=== PATIENT | female | born 1995 | race Caucasian/White ===

== ENCOUNTER 2018-12-21 07:14 | Emergency (ER) | payer OTHER ==
[~2018-12-21] VITALS: Ht 165 cm; Wt 88.6 kg
[~2018-12-21 07:14] MED LIST: AMOX500C2 PO; AZIT500T2 PO; DIAMOX PO; GUAI100L2 PO; NF-ESOM40C PO; PHEN-571 PO; POLY17PO23 PO; PRD10T PO; PRM25T PO; PS30T PO; TRAM50TA2 PO; ZLP5T PO
[2018-12-21] MEDS ORDERED: ACETAMINOPHEN 500 MG TAB (TYLENOL) PO STA (07:35)
[2018-12-21] MEDS ORDERED: LACTATED RINGERS 1,000 ML IV ONE ×2 (07:35→08:34)
[2018-12-21] MEDS ORDERED: BIRTH CONTROL (07:43)
[2018-12-21] MEDS ORDERED: KETOROLAC 30 MG/ML VIAL IVP STA (07:47)
--- NOTE | 2018-12-21 07:56 | ED General ---
General Chief Complaint: Cough/Cold/Flu Symptoms Stated Complaint: FEVER,BODY ACHES, CHILLS Nursing Triage Note: PT STATES FEVER, SORETHROAT,NASAL CONGESTION STARTED LAST NITE. 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 She states the symptoms began while at home last night. Nothing seems to alleviate the symptoms and laying flat in bed causes an increase in neck pain. Patient has a history of meningitis in 2009. Patient denies any other associated symptoms, but does agree that she is experiencing the same symptoms as she did from her previous episode of meningitis. Location Injury Occurred: Symptoms began at home Timing/Duration: 12 Hours Severity: Moderate Associated Systoms: Fever/Chills, Headaches, Nausea/Vomiting, Weakness ([employer] CHILDRESS STUDENT) Timing/Duration: 12 Hours Associated Systoms: No Chest Pain, No Cough, No Shortness of Air (KEL CALLEJAS MD) Allergies and Home Medications Allergies Coded Allergies: No Known Drug Allergies (Unverified , 11/28/09) Patient Home Medication List Home Medication List Reviewed: Yes (KEL CALLEJAS MD) Review of Systems Review of Systems Constitutional: see HPI EENTM: nose congestion Respiratory: no symptoms reported Cardiovascular: no symptoms reported Gastrointestinal: no symptoms reported Genitourinary: no symptoms reported Musculoskeletal: back pain, neck pain Skin: no symptoms reported Psychiatric/Neurological: No Symptoms Reported Hematologic/Lymphatic: No Symptoms Reported Immunological/Allergic: no symptoms reported ([employer] CHILDRESS STUDENT) Constitutional: see HPI EENTM: throat pain Respiratory: No cough, No short of breath Musculoskeletal: muscle pain (KEL CALLEJAS MD) All Other Systems Reviewed Negative Unless Noted: Yes (KEL CALLEJAS MD) Past Ngbtpqa-Syuovc-Ikkqrr Hx Past Med/Social Hx: Reviewed Nursing Past Med/Soc Hx (KEL CALLEJAS MD) Patient Social History Alcohol Use: Occasionally Uses Recreational Drug Use: No Smoking Status: Never a Smoker Recent Foreign Travel: No Contact w/Someone Who Travel: No Recent Infectious Disease Expo: No Recent Hopitalizations: No Physical Abuse: No Sexual Abuse: No ([employer] CHILDRESS STUDENT) Seasonal Allergies Seasonal Allergies: Yes (ELBA CHILDRESS) Past Medical History Surgeries: Yes (TUBES IN EARS) Ear Surgery Respiratory: No Cardiac: No Neurological: Yes Meningitis : No Last Menstrual Period: Dec 11, 2018 Reproductive Disorders: No Gastrointestinal: No Musculoskeletal: No Endocrine: No Psychosocial: No Blood Disorders: No (ELBA CHILDRESS) Family Medical History Reviewed Nursing Family Hx (KEL CALLEJAS MD) Physical Exam-Suspected Sepsis Physical Exam Vital Signs Vital Signs - First Documented 12/21/18 07:20 Temp 39.3 Pulse 145 Resp 20 B/P (MAP) 121/68 (85) Pulse Ox 95 O2 Delivery Room Air (KEL CALLEJAS MD) Vital Signs Capillary Refill : Less Than 3 Seconds (ELBA CHILDRESS) Blood Pressure Mean: 85 Height, Weight, BMI Height: '" Weight: lbs. oz. kg; 32.00 BMI Method:Stated General Appearance: Other (Patient appears lethargic) Eyes: Bilateral Eye Normal Inspection, Bilateral Eye PERRL HEENT: PERRL/EOMI, TMs Normal Neck: Tender Midline Respiratory: Chest Non Tender, Lungs Clear, Normal Breath Sounds, No Accessory Muscle Use, No Respiratory Distress Cardiovascular: No Edema, No Gallop, No JVD, Normal Peripheral Pulses, Systolic Murmur, Tachycardia Gastrointestinal: Normal Bowel Sounds, No Organomegaly, No Pulsatile Mass, Non Tender, Soft Back: Normal Inspection, No CVA Tenderness, No Vertebral Tenderness Extremity: Normal Inspection Neurologic/Psychiatric: Alert, Oriented x3, No Motor/Sensory Deficits, Normal Mood/Affect, 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 Norm as Tested ([employer] CHILDRESS STUDENT) General Appearance: WD/WN, Mild Distress HEENT: TMs Normal, Pharyngeal Erythema, Other (mild bilateral nasal congestion with clear rhinorrhea and mild erythema) Neck: Full Range of Motion, Supple Respiratory: Lungs Clear, Normal Breath Sounds Cardiovascular: Systolic Murmur, Tachycardia Gastrointestinal: Non Tender, Soft Back: Normal Inspection, No CVA Tenderness, No Vertebral Tenderness Extremity: Normal Capillary Refill, Normal Range of Motion, Non Tender Neurologic/Psychiatric: Alert, Oriented x3 Skin: normal color, warm/dry (KEL CALLEJAS MD) Focused Exam Lactate Level 12/21/18 07:30: Lactic Acid Level 0.75 (KEL CALLEJAS MD) Lactic Acid Level (KEL CALLEJAS MD) Progress/Results/Core Measures Suspected Sepsis Recent Fever Within 48 Hours: No Infection Criteria Present: None New/Unexplained Altered Menta: No Sepsis Screen: No Definite Risk SIRS Temperature: Pulse: 145 Respiratory Rate: 20 Blood Pressure 121 /68 Mean: 85 ([employer]BA CHILDRESS STUDENT) Results/Orders Lab Results Laboratory Tests Test 12/21/18 07:30 12/21/18 08:33 12/21/18 09:10 12/21/18 11:19 Range/Units White Blood Count 12.8 H 4.3-11.0 10^3/uL Red Blood Count 4.78 4.35-5.85 10^6/uL Hemoglobin 11.8 11.5-16.0 G/DL Hematocrit 36 35-52 % Mean Corpuscular Volume 76 L 80-99 FL Mean Corpuscular Hemoglobin 25 25-34 PG Mean Corpuscular Hemoglobin Concent 32 32-36 G/DL Red Cell Distribution Width 16.7 H 10.0-14.5 % Platelet Count 259 130-400 10^3/uL Mean Platelet Volume 10.0 7.4-10.4 FL Neutrophils (%) (Auto) 74 42-75 % Lymphocytes (%) (Auto) 21 12-44 % Monocytes (%) (Auto) 4 0-12 % Eosinophils (%) (Auto) 0 0-10 % Basophils (%) (Auto) 0 0-10 % Neutrophils # (Auto) 9.5 H 1.8-7.8 X 10^3 Lymphocytes # (Auto) 2.7 1.0-4.0 X 10^3 Monocytes # (Auto) 0.5 0.0-1.0 X 10^3 Eosinophils # (Auto) 0.0 0.0-0.3 10^3/uL Basophils # (Auto) 0.0 0.0-0.1 10^3/uL Prothrombin Time 15.1 H 12.2-14.7 SEC INR Comment 1.1 0.8-1.4 Activated Partial Thromboplast Time 29 24-35 SEC Sodium Level 133 L 135-145 MMOL/L Potassium Level 3.6 3.6-5.0 MMOL/L Chloride Level 101 98-107 MMOL/L Carbon Dioxide Level 22 21-32 MMOL/L Anion Gap 10 5-14 MMOL/L Blood Urea Nitrogen 8 7-18 MG/DL Creatinine 0.82 0.60-1.30 MG/DL Estimat Glomerular Filtration Rate > 60 BUN/Creatinine Ratio 10 Glucose Level 112 H 70-105 MG/DL Lactic Acid Level 0.75 0.50-2.00 MMOL/L Calcium Level 9.2 8.5-10.1 MG/DL Corrected Calcium 8.9 8.5-10.1 MG/DL Total Bilirubin 0.6 0.1-1.0 MG/DL Aspartate Amino Transf (AST/SGOT) 21 5-34 U/L Alanine Aminotransferase (ALT/SGPT) 22 0-55 U/L Alkaline Phosphatase 81 40-136 U/L C-Reactive Protein High Sensitivity 4.25 H 0.00-0.50 MG/DL Total Protein 7.5 6.4-8.2 GM/DL Albumin 4.4 3.2-4.5 GM/DL Serum Test, Qualitative NEGATIVE NEGATIVE Group A Streptococcus Screen NEGATIVE NEGATIVE Urine Color YELLOW Urine Clarity CLEAR Urine pH 6.5 5-9 Urine Specific [place] 1.010 L 1.016-1.022 Urine Protein 2+ H NEGATIVE Urine Glucose (UA) NEGATIVE NEGATIVE Urine Ketones 3+ H NEGATIVE Urine Nitrite NEGATIVE NEGATIVE Urine Bilirubin NEGATIVE NEGATIVE Urine Urobilinogen NORMAL NORMAL MG/DL Urine Leukocyte Esterase 1+ H NEGATIVE Urine RBC (Auto) 1+ H NEGATIVE Urine RBC RARE /HPF Urine WBC 0-2 /HPF Urine Squamous Epithelial Cells 2-5 /HPF Urine Crystals NONE /LPF Urine Bacteria TRACE /HPF Urine Casts NONE /LPF Urine Mucus NEGATIVE /LPF Urine Culture Indicated NO CSF Tube Number 4 CSF Appearance CLEAR CSF Color COLORLESS CSF WBC 3 0-5 CELLS CSF RBC 38 H 0-0 CELLS CSF Lymphocytes % CSF Mononuclear WBCs % CSF Polynuclear WBCs % CSF Glucose 67 50-80 MG/DL CSF Total Protein 30 15-40 MG/DL (KEL CALLEJAS MD) Micro Results Microbiology 12/21/18 Gram Stain - Final, Resulted 12/21/18 CSF Culture, Resulted Pending 12/21/18 Influenza Types A,B Antigen (ZOIE) - Final, Complete (KEL CALLEJAS MD) My Orders Orders - KEL CALLEJAS MD Lactated Ringers (Lr 1000 Ml Iv Solution (12/21/18 07:35) Influenza A And B Antigens (12/21/18 07:35) Acetaminophen Tablet (Tylenol Tablet) (12/21/18 07:35) Cbc With Automated Diff (12/21/18 07:35) Comprehensive Metabolic Panel (12/21/18 07:35) Blood Culture (12/21/18 07:35) Sputum Culture (12/21/18 07:35) Urinalysis (12/21/18 07:35) Urine Culture (12/21/18 07:35) Protime With Inr (12/21/18 07:35) Partial Thromboplastin Time (12/21/18 07:35) Chest 1 View, Ap/Pa Only (12/21/18 07:35) Ed Iv/Invasive Line Start (12/21/18 07:35) Vital Signs Adult Sepsis Patie Q15M (12/21/18 07:35) O2 (12/21/18 07:35) Remove Rings In Anticipation O (12/21/18 07:35) Lactic Acid Analyzer (12/21/18 07:35) Ketorolac Injection (Toradol Injection) (12/21/18 07:47) Hcg,Qualitative Serum (12/21/18 07:49) Hs C Reactive Protein (12/21/18 08:10) Rapid Strep A Screen (12/21/18 08:31) Ed Iv/Invasive Line Start (12/21/18 08:34) Lactated Ringers (Lr 1000 Ml Iv Solution (12/21/18 08:34) Ct Head Wo (12/21/18 09:10) Csf Cell Count (12/21/18 10:21) Csf Glucose (12/21/18 10:21) Csf Total Protein (12/21/18 10:21) Csf Culture (12/21/18 10:21) Virus Culture (12/21/18 10:21) Lidocaine 1% Inj 20 Ml (Xylocaine 1% Inj (12/21/18 10:52) (KEL CALLEJAS MD) Medications Given in ED Current Medications Medications Dose Ordered Sig/Patric Route Start Time Stop Time Status Last Admin Dose Admin Lactated Ringer's 1,000 ml @ 0 mls/hr Q0M ONCE IV 12/21/18 07:35 12/21/18 07:47 DC 12/21/18 07:51 1,000 MLS/HR Lactated Ringer's 1,000 ml @ 0 mls/hr Q0M ONCE IV 12/21/18 08:34 12/21/18 08:35 DC 12/21/18 08:43 1,000 MLS/HR Lidocaine HCl 20 ml STK-MED ONCE .ROUTE 12/21/18 10:52 12/21/18 10:54 DC 12/21/18 11:13 20 ML (KEL CALLEJAS MD) Vital Signs/I&O 12/21/18 12/21/18 07:20 07:20 Temp 39.3 Pulse 145 Resp 20 B/P (MAP) 121/68 (85) Pulse Ox 95 O2 Delivery Room Air (KEL CALLEJAS MD) Vital Signs/I&O Capillary Refill : Less Than 3 Seconds (ELBA CHILDRESS PA STUDENT) Blood Pressure Mean: 85 Progress Note : Progress Note I have seen and evaluated the patient and agree with above except as indicated. I have directed the plan of care. Patient is here with onset of fever and bodyaches that started last night. Fever noted in the range of 39.3C here and was reportedly higher home. She did take Tylenol last night but has not had anything today. She does arrive tachycardic and febrile. Denies nausea or vomiting. Does admit to sore throat. No significant cough. Vital signs reviewed. Physical exam as above. Did complain of neck pain but did have full range of motion but reported a little pain on far turns when evaluating TMs. We will initiate sepsis workup including influenza and rapid strep. LR 1 L bolus ordered. This is repeated 1. Acetaminophen 1 g by mouth and Toradol 30 mg IV ordered. Monitor patient. 1020: Patient is overall doing much better. She does have significant history of previous meningitis with uncal herniation requiring intubation after cardiopulmonary arrest. This does appear to be viral related to meningitis at that time. Given her history and presenting symptoms, CT head was ordered and is negative. We will proceed with lumbar puncture. Our anesthesia partners were consulted and they will do a lumbar puncture with opening pre ssure. We will get typical CSF studies as well as viral culture. This was discussed with patient and family who agree with plan. 1315: Results reviewed from lumbar puncture. Patient did have opening pressure of 24 but clear fluid. Gram stain shows rare WBC and no bacteria. Patient did have traumatic tap due to difficulty and there were a few red cells on the cell count with 3 WBCs. Protein and glucose were normal. No indication of bacterial meningitis. Overall she is markedly improved with heart rate of 73 and states that she feels better and is currently afebrile. Given the current situation I believe bacterial meningitis is ruled out and significant other meningitis unlikely although can be followed and should be followed outpatient. I did discuss the case with Dr. Jimenez and she agrees. We both agree on no antibiotics at this point. I would like to follow-up and Dr. Yoo is asked that we call for appointment which I did. She has appointment with the nurse practitioner Carolyn. This is Monday at 8 AM on 12/11 5. All of this was discussed with the patient and family who agree. Discharged home with return precautions. Patient and family verbalize understanding instructions and agreement with plan. I will send a copy of the chart to Dr. Jimenez (KEL CALLEJAS MD) Diagnostic Imaging Diagonstic Imaging: Xray Plain Films/CT/US/NM/MRI: chest Comments NAME: WILLIAM VASQUEZ [facility] REC#: [id number] PT STATUS: REG ER : 1995 PHYSICIAN: KEL CALLEJAS MD ADMIT DATE: 12/21/18/ER Draft Date of Exam:12/21/18 CHEST 1 VIEW, AP/PA ONLY INDICATION: Fever. Time of exam 8:05 AM Correlation is made with prior chest from 11/29/2009. The heart size is normal. The pulmonary vascularity is unremarkable. The lungs are clear. No infiltrate, effusion or pneumothorax is detected. Impression: No acute cardiopulmonary process is detected. Dictated on workstation # [id number] Dict: 12/21/18823 Trans: 12/21/18826 [facility] [id number] Interpreted by: ANAY JIMENEZ MD Electronically signed by: Diagonstic Imaging: CT Plain Films/CT/US/NM/MRI: head Comments NAME: WILLIAM VASQUEZ REC#: [id number] PT STATUS: REG ER : 1995 PHYSICIAN: KEL CALLEJAS MD ADMIT DATE: 12/21/18/ER Signed Date of Exam: 12/21/18 CT HEAD WO PROCEDURE: CT head without contrast. TECHNIQUE: Multiple contiguous axial images were obtained through the brain without the use of intravenous contrast. Auto Exposure Controls were utilized during the CT exam to meet ALARA standards for radiation dose reduction. INDICATION: Fever, pain, headache. There were no findings of focal nor generalized cerebral edema. There was no evidence for an elevation of the intracranial pressures. The basilar cisterns are patent. The ventricular system is nondilated and nondisplaced. When compared to a prior performed in 2009, there has been no appreciable interval change. The mastoid air cells are clear. The middle ear cavities clear. The partially visualized orbits and paranasal sinuses unremarkable. IMPRESSION: No hemorrhage, edema, elevated pressures or acute appearing abnormality. Clear sinuses. Dictated by: Dictated on workstation # [id number] Dict: 12/21/18 0958 Trans: 12/21/18 1147 Interpreted by: MARGARITA RUIZ Electronically signed by: MARGARITA RUIZ 12/21/18 1147 (KEL CALLEJAS MD) Departure Impression Primary Impression: Fever Qualified Codes: R50.9 - Fever, unspecified Additional Impression: Viral upper respiratory infection Disposition: 01 HOME, SELF-CARE Condition: Improved Departure-Patient Inst. Decision time for Depature: 13:24 (KEL CALLEJAS MD) Referrals: [facility] – [place], [place] (PCP) Primary Care Physician Patient Instructions: Fever, Adult (DC), Viral Meningitis, Adult (DC), Viral Upper Respiratory Infection, Adult (DC) Add. Discharge Instructions: All discharge instructions reviewed with patient and/or family. Voiced understanding. Drink plenty of fluids and get plenty of rest. You need to follow-up at the clinic with the nurse practitioner, Carolyn, at 8 AM on 12/25/18. It is very important that you make this appointment. Please do not miss this appointment. You may take ibuprofen 800 mg every 8 hours as needed for fever or pain. You may take Tylenol/acetaminophen 1000 mg every 6-8 hours as needed for fever or pain. Return for worse pain, vision or balance problems, weakness, confusion, difficulty with walking, persistent or worsening fever, breathing problems or other concerns as needed. Copy Copies To 1: SIMON JIMENEZ BRODIE PA STUDENT Dec 21, 2018 07:56 KEL CALLEJAS MD Dec 21, 2018 08:34
[2018-12-21 08:07] LABS: BASOPHILS % (AUTO) 0 % (0-10); EOSINOPHILS % (AUTO) 0 % (0-10); HEMATOCRIT 36 % (35-52); HEMOGLOBIN 11.8 G/DL (11.5-16.0); LYMPHOCYTES # (AUTO) 2.7 X 10^3 (1.0-4.0); LYMPHOCYTES % (AUTO) 21 % (12-44); MEAN CORPUSCULAR HEMOGLOBIN 25 PG (25-34); MEAN CORPUSCULAR HGB CONC 32 G/DL (32-36); MEAN CORPUSCULAR VOLUME 76 FL (80-99); MONOCYTES # (AUTO) 0.5 X 10^3 (0.0-1.0); MONOCYTES % (AUTO) 4 % (0-12); NEUTROPHILS # (AUTO) 9.5 X 10^3 (1.8-7.8); NEUTROPHILS % (AUTO) 74 % (42-75); PLATELET COUNT 259 10^3/uL (130-400); RED CELL DISTRIBUTION WIDTH 16.7 % (10.0-14.5); WHITE BLOOD COUNT 12.8 10^3/uL (4.3-11.0)
[2018-12-21 08:10] LABS: INR 1.1 (0.8-1.4); PROTHROMBIN TIME PATIENT 15.1 SEC (12.2-14.7)
[2018-12-21 08:16] LABS: ALANINE AMINOTRANSFERASE 22 U/L (0-55); ALBUMIN 4.4 GM/DL (3.2-4.5); ALKALINE PHOSPHATASE 81 U/L (40-136); BILIRUBIN,TOTAL 0.6 MG/DL (0.1-1.0); BUN/CREATININE RATIO 10; CALCIUM 9.2 MG/DL (8.5-10.1); CARBON DIOXIDE 22 MMOL/L (21-32); CHLORIDE 101 MMOL/L (98-107); CREATININE SERUM 0.82 MG/DL (0.60-1.30); GFR ESTIMATED > 60; GLUCOSE 112 MG/DL (70-105); POTASSIUM 3.6 MMOL/L (3.6-5.0); SODIUM 133 MMOL/L (135-145); TOTAL PROTEIN 7.5 GM/DL (6.4-8.2)
--- NOTE | 2018-12-21 08:27 | Diagnostic Imaging Report ---
INDICATION: Fever. Time of exam 8:05 AM Correlation is made with prior chest from 11/29/2009. The heart size is normal. The pulmonary vascularity is unremarkable. The lungs are clear. No infiltrate, effusion or pneumothorax is detected. Impression: No acute cardiopulmonary process is detected. Dictated by: Dictated on workstation # [id number]
[2018-12-21 09:19] LABS: BILIRUBIN,URINE NEGATIVE (NEGATIVE); CLARITY,URINE CLEAR; COLOR,URINE YELLOW; GLUCOSE, URINE (UA) NEGATIVE (NEGATIVE); KETONES,URINE 3+ (NEGATIVE); LEUKOCYTE ESTERASE ,URINE 1+ (NEGATIVE); NITRITE,URINE NEGATIVE (NEGATIVE); PH,URINE 6.5 (5-9); PROTEIN,URINE 2+ (NEGATIVE); UROBILINOGEN,URINE NORMAL (NORMAL)
[2018-12-21 09:25] LABS: BACTERIA,URINE TRACE /HPF; RBC,URINE RARE /HPF; WBC,URINE 0-2 /HPF
--- NOTE | 2018-12-21 09:52 | NUR ---
CURRENT VS T-37.1, P-82, B/P130/67
--- NOTE | 2018-12-21 10:06 | Diagnostic Imaging Report ---
PROCEDURE: CT head without contrast. TECHNIQUE: Multiple contiguous axial images were obtained through the brain without the use of intravenous contrast. Auto Exposure Controls were utilized during the CT exam to meet ALARA standards for radiation dose reduction. INDICATION: Fever, pain, headache. There were no findings of focal nor generalized cerebral edema. There was no evidence for an elevation of the intracranial pressures. The basilar cisterns are patent. The ventricular system is nondilated and nondisplaced. When compared to a prior performed in 2009, there has been no appreciable interval change. The mastoid air cells are clear. The middle ear cavities clear. The partially visualized orbits and paranasal sinuses unremarkable. IMPRESSION: No hemorrhage, edema, elevated pressures or acute appearing abnormality. Clear sinuses. Dictated by: Dictated on workstation # [id number]
[2018-12-21] MEDS ORDERED: LIDOCAINE 1% INJ 20 ML 20 ML VIAL ONE (10:52)
--- NOTE | 2018-12-21 11:18 | NUR ---
CFS FLUID HAND CARRIED TO LAB
--- NOTE | 2018-12-21 11:37 | Anesthesia-Procedure Note ---
Procedures/Interventions Procedure Start/Stop/Diagnosis Date of Procedure: Dec 21, 2018 Start Time: 10:22 Referring Physician: Xiomara Stop Time: 11:22 Lumbar Puncture Discussed Risk,Benefits: Yes Patient Consents: Yes Position: Lying, Left Sterile Technique: Yes Opening Pressure: 24 Fluid Color: Clear Spinal Needle Used: 20g Quinke 3 1/2inch Procedure Notes Patient prepped and draped in sterile fashion with Betadine swabs x 3 and fenestrated drape placed. Multiple attempts at 2 levels L3/4 and L 4/5. Paraesthesia to left leg multiple times. Resolved when needle removed. Multiple attempts with hem access. Bone Id'd by tactical feel needle moved caudad and CSF obtained. RICHI BROWN CRNA Dec 21, 2018 11:37
--- NOTE | 2018-12-21 11:42 | NUR ---
PT RESTING IN BED NO CO OFFERED
[2018-12-21 11:44] LABS: APPEARANCE,CSF CLEAR; COLOR,CSF COLORLESS; CSF TUBE NUMBER 4; RED BLOOD CELL,CSF 38 CELLS (0-0); WHITE BLOOD CELL,CSF 3 CELLS (0-5)
[2018-12-21 11:53] LABS: CSF GLUCOSE 67 MG/DL (50-80); CSF TOTAL PROTEIN 30 MG/DL (15-40)
--- NOTE | 2018-12-21 12:45 | NUR ---
NO CO UP TO BATHROOM WITHOUT DISTRESS
[2018-12-21 13:57] VITALS: BP 117/61
== END 2018-12-21 13:57 | disposition home or self-care (01) ==
LOC: EDUNIT# 07:14 → ER 07:17
DX: J06.9 Acute upper respiratory infection, unspecified (principal); Z86.61 Personal history of infections of the central nervous system
CPT/HCPCS: 36415; 70450; 71045; 80053; 81000; 82945; 83605; 84157; 84703; 85025; 85610; 85730; 86141; 87040; 87070; 87088; 87205; 87252; 87430; 87804; 89051; 96361; 96374

== ENCOUNTER 2019-07-09 19:42 | Emergency (ER) | payer BC ==
[~2019-07-09] VITALS: Ht 165 cm; Wt 89.8 kg
[~2019-07-09 19:42] MED LIST changes: +BIRTH CONTROL
--- OUTSIDE RECORDS SUMMARY | 2019-07-09 19:48 | XMS REPORT | Continuity of Care Document ---
Demographics Preferred Language Unknown Marital Status Unknown Scientologist Affiliation Unknown Race Unknown Ethnic Group Unknown Author Organization Unknown Address Unknown Phone Unavailable Allergies Active Description Code Type Severity Reaction Onset Reported/Identified Relationship to Patient Clinical Status Yes No Known Drug Allergies [id number] Drug Allergy Unknown N/A 11/28/2009 Medications There is no data. Problems Date Dx Coded Attending Type Code Diagnosis Diagnosed By 10/13/2008 NAWAF RAJPUT MD V03. 89 MENINGOCOCCAL, OTHER SPECIFIED SINGLE BACTERIAL DISEASE 10/13/2008 NAWAF RAJPUT MD V05. 3 HEPATITIS VIRAL/ALL 10/13/2008 NAWAF RAJPUT MD V05. 8 GARDASIL, VARICELLA 10/13/2008 NAWAF RAJPUT MD V06. 5 DT, TETANUS-DIPHTHERIA [Td] ,TDAP 10/13/2008 NAWAF RAJPUT MD V70. 4 EXAMINATION FOR MEDICOLEGAL REASONS 12/22/2009 NAWAF RAJPUT MD 047. 9 VIRAL MENINGITIS 12/22/2009 NAWAF RAJPUT MD 780. 52 insomnia 01/05/2010 NAWAF RAJPUT MD 706. 1 OTHER ACNE 01/15/2010 NAWAF RAJPUT MD 465. 9 UPPER RESPIRATORY INFECTION 02/02/2010 NAWAF RAJPUT MD 784. 91 POSTNASAL DRIP 04/07/2010 NAWAF RAJPUT MD 461. 9 SINUSITIS ACUTE 05/11/2010 NAWAF RAJPUT MD 478. 19 OTHER DISEASES OF NASAL CAVITY AND SINUSES 05/11/2010 NAWAF RAJPUT MD 784. 0 HEADACHE 01/18/2011 NAWAF RAJPUT MD 381. 00 ACUTE NONSUPPURATIVE OTITIS MEDIA UNSPECIFIED 10/04/2011 NAWAF RAJPUT MD 278. 00 OBESITY 10/04/2011 NAWAF RAJPUT MD 789. 00 abdominal pain 04/13/2012 NAWAF RAJPUT MD 682. 2 CELLULITIS AND ABSCESS OF TRUNK 12/26/2018 KEL CALLEJAS MD, Ot J06.9 ACUTE UPPER RESPIRATORY INFECTION, UNSPE 12/26/2018 KEL CALLEJAS MD, Ot R50.9 FEVER, UNSPECIFIED 12/26/2018 KEL CALLEJAS MD, Ot Z86.61 PERSONAL HISTORY OF INFECTIONS OF THE CE Procedures Code Description [place] [address] CULT URE WOUND (AEROBIC) 04/15/2012 Results Test Result Range CBC With Differential/Platelet - 7 12:36 WBC 8.5 x10E3/uL 3.4-10.8 RBC 5.00 x10E6/uL 3.77-5.28 Hemoglobin 12.9 g/dL 11.1-15.9 Hematocrit 39.4 % 34.0-46.6 MCV 79 fL 79-97 MCH 25.8 pg 26.6-33.0 MCHC 32.7 g/dL 31.5-35.7 RDW 14.6 % 12.3-15.4 Platelets 365 x10E3/uL 150-379 Neutrophils 62 % Lymphs 29 % Monocytes 7 % Eos 2 % Basos 0 % Neutrophils (Absolute) 5.3 x10E3/uL 1.4- 7.0 Lymphs (Absolute) 2.4 x10E3/uL 0.7-3.1 Monocytes(Absolute) 0.6 x10E3/uL 0.1-0.9 Eos (Absolute) 0.1 x10E3/uL 0.0-0.4 Baso (Absolute) 0.0 x10E3/uL 0.0-0.2 Immature Granulocytes 0 % Immature Grans (Abs) 0.0 x10E3/uL 0.0-0. 1 TSH - 04/21/16 12:36 TSH 8.310 uIU/mL 0.450-4.500 TSH - 06/13/16 17:34 TSH 6.990 uIU/mL 0.450-4.500 TSH - 08/24/16 15:48 TSH 7.410 uIU/mL 0.450-4.500 TSH - 10/27/16 17:55 TSH 4.940 uIU/mL 0.450-4.500 CBC - 11/30/16 10:27 WBC 8.0 x10E3/uL 3.4-10.8 RBC 5.22 x10E6/uL 3.77-5.28 Hemoglobin 13.3 g/dL 11.1-15.9 Hematocrit 40.5 % 34.0-46.6 MCV 78 fL 79-97 MCH 25.5 pg 26.6-33.0 MCHC 32.8 g/dL 31.5-35.7 RDW 14.0 % 12.3-15.4 Platelets 406 x10E3/uL 150-379 Neutrophils 57 % NRG Lymphs 32 % NRG Monocytes 7 % NRG Eos 3 % NRG Basos 1 % NRG Neutrophils (Absolute) 4.6 x10E3/uL 1.4- 7.0 Lymphs (Absolute) 2.5 x10E3/uL 0.7-3.1 Monocytes(Absolute) 0.6 x10E3/uL 0.1-0.9 Eos (Absolute) 0.2 x10E3/uL 0.0-0.4 Baso (Absolute) 0.0 x10E3/uL 0.0-0.2 Immature Granulocytes 0 % NRG Immature Grans (Abs) 0.0 x10E3/uL 0.0-0. 1 TSH+Free T4 - 11/30/16 10:27 TSH 3.520 uIU/mL 0.450-4.500 T4,Free(Direct) 1.69 ng/dL 0.82-1.77 CBC With Differential/Platelet - 7 10:27 WBC 8.0 x10E3/uL 3.4-10.8 RBC 5.22 x10E6/uL 3.77-5.28 Hemoglobin 13.3 g/dL 11.1-15.9 Hematocrit 40.5 % 34.0-46.6 MCV 78 fL 79-97 MCH 25.5 pg 26.6-33.0 MCHC 32.8 g/dL 31.5-35.7 RDW 14.0 % 12.3-15.4 Platelets 406 x10E3/uL 150-379 Neutrophils 57 % Lymphs 32 % Monocytes 7 % Eos 3 % Basos 1 % Neutrophils (Absolute) 4.6 x10E3/uL 1.4- 7.0 Lymphs (Absolute) 2.5 x10E3/uL 0.7-3.1 Monocytes(Absolute) 0.6 x10E3/uL 0.1-0.9 Eos (Absolute) 0.2 x10E3/uL 0.0-0.4 Baso (Absolute) 0.0 x10E3/uL 0.0-0.2 Immature Granulocytes 0 % Immature Grans (Abs) 0.0 x10E3/uL 0.0-0. 1 Triiodothyronine (T3) - 11/30/16 10:27 Triiodothyronine (T3) 114 ng/dL 71-180 Insulin - 11/30/16 10:27 Insulin 30.3 uIU/mL 2.6-24.9 SUREPATH PAP RFX HPV mRNA E6/E7 - 12:34 CLINICAL INFORMATION: NRG LMP: 08/21/18 NRG PREV. PAP: NONE NRG PREV. BX: NRG SOURCE: Cervix NRG STATEMENT OF ADEQUACY: NRG INTERPRETATION/RESULT: NRG GRADES 6 THROUGH 8 TEACHER: NRG GENERAL CATEGORIZATION: NRG COMMENT: NRG PATHOLOGIST: NRG COMMENT NRG SYPHILIS (RPR W/ REFLEX CONFIRMATION) - 09/12/18 11:47 RPR (DX) W/REFL TITER AND CONFIRMATORY TESTING NON-REACTIVE NON-REACTIVE Blood lactic acid measurement (moles/vol ume) - 12/21/18 07:30 Blood lactic acid measurement (moles/volume) 0.75 mmol/L 0.50-2.00 Serum or plasma choriogonadotropin (preg paco test) detection - 12/21/18 07:30 Serum or plasma choriogonadotropin ( test) de tection NEGATIVE NEGATIVE Complete blood count (CBC) with automate d white blood cell (WBC) differential - 12/21/18 07:30 Blood leukocytes automated count (number/volume) 12.8 10*3/uL 4.3-11.0 Blood erythrocytes automated count (number/volume) 4.78 10*6/uL 4.35-5.85 Venous blood hemoglobin measurement (mass/volume) 11.8 g/dL 11.5-16.0 Blood hematocrit (volume fraction) 36 % 35-52 Automated erythrocyte mean corpuscular volume 76 [ foz_us] 80-99 Automated erythrocyte mean corpuscular h emoglobin (mass per erythrocyte) 25 pg 25-34 Automated erythrocyte mean corpuscular h emoglobin concentration measurement (mass/volume) 32 g/dL 32-36 Automated erythrocyte distribution width ratio 16. 7 % 10.0- 14.5 Automated blood platelet count (count/volume) 259 10*3/uL 130-400 Automated blood platelet mean volume measurement 10.0 [foz_us] 7.4-10.4 Automated blood neutrophils/100 leukocytes 74 % 42-75 Automated blood lymphocytes/100 leukocytes 21 % 12-44 Blood monocytes/100 leukocytes 4 % 0-12 Automated blood eosinophils/100 leukocytes 0 % 0-10 Automated blood basophils/100 leukocytes 0 % 0-10 Blood neutrophils automated count (number/volume) 9.5 10*3 1.8-7.8 Blood lymphocytes automated count (number/volume) 2.7 10*3 1.0-4.0 Blood monocytes automated count (number/volume) 0. 5 10*3 0.0-1.0 Automated eosinophil count 0.0 10*3/uL 0 .0-0.3 Automated blood basophil count (count/volume) 0.0 10*3/uL 0.0-0.1 PT panel in platelet poor plasma by coag ulation assay - 12/21/18 07:30 Prothrombin time (PT) in platelet poor plasma by coagu lation assay 15.1 s 12.2-14.7 INR in platelet poor plasma or blood by coagulation as say 1.1 0.8-1.4 Activated partial thromboplastin time (a PTT) in platelet poor plasma bycoagulation assay - 12/21/18 07:30 Activated partial thromboplastin time (a PTT) in platelet poor plasma bycoagulation assay 29 s 24-35 Comprehensive metabolic panel - 12/21/18 07:30 Serum or plasma sodium measurement (moles/volume) 133 mmol/L 135-145 Serum or plasma potassium measurement (moles/volume) 3.6 mmol/L 3.6-5.0 Serum or plasma chloride measurement (moles/volume) 101 mmol/L 98-107 Carbon dioxide 22 mmol/L 21-32 Serum or plasma anion gap determination (moles/volume) 10 mmol/L 5-14 Serum or plasma urea nitrogen measurement (mass/volume ) 8 mg/dL 7-18 Serum or plasma creatinine measurement (mass/volume) 0.82 mg/dL 0.60-1.30 Serum or plasma urea nitrogen/creatinine mass ratio 10 NRG Serum or plasma creatinine measurement w ith calculation of estimated glomerular filtration rate > NRG Serum or plasma glucose measurement (mass/volume) 112 mg/dL 70-105 Serum or plasma calcium measurement (mass/volume) 9.2 mg/dL 8.5-10.1 Serum or plasma total bilirubin measurement (mass/volu me) 0.6 mg/dL 0.1-1.0 Serum or plasma alkaline phosphatase barrett surement (enzymatic activity/volume) 81 U/L 40-136 Serum or plasma aspartate aminotransfera se measurement (enzymatic activity/volume) 21 U/L 5-34 Serum or plasma alanine aminotransferase measurement (enzymatic activity/volume) 22 U/L 0-55 Serum or plasma protein measurement (mass/volume) 7.5 g/dL 6.4-8.2 Serum or plasma albumin measurement (mass/volume) 4.4 g/dL 3.2-4.5 CALCIUM CORRECTED 8.9 mg/dL 8.5-10.1 Serum or plasma C reactive protein measu rement (mass/volume) - 12/21/18 07:30 Serum or plasma C reactive protein measurement (mass/v olume) 4.25 mg/dL 0.00-0.50 Influenza virus A and B antigen detectio n - 12/21/18 07:30 FLU RESULT NEGATIVE FOR INFLUENZA A AND B ANTIGENS BY IA NRG Bacterial blood culture - 12/21/18 07:30 Bacterial blood culture NG NRG Bacterial blood culture - 12/21/18 08:14 Bacterial blood culture NG NRG Streptococcus pyogenes antigen detection - 12/21/18 08:33 Streptococcus pyogenes antigen detection NEGATIVE NEGATIVE Bacterial throat culture - 12/21/18 08:3 3 Bacterial throat culture [id number] NRG FREE TEXT EXTERNAL PLUS NORMAL BRITTNI NR G QUANTITY OF GROWTH Abundant Growth NRG Complete urinalysis with reflex to cultu re - 12/21/18 09:10 Urine color determination YELLOW NRG Urine clarity determination CLEAR NR G Urine pH measurement by test strip 6.5 5-9 Specific gravity of urine by test strip 1.010 1.016-1.022 Urine protein assay by test strip, semi-quantitative 2+ NEGATIVE Urine glucose detection by automated test strip NE GATIVE NEGATIVE Erythrocytes detection in urine sediment by light micr oscopy 1+ NEGATIVE Urine ketones detection by automated test strip 3+ NEGATIVE Urine nitrite detection by test strip NEGATIVE NEGATIVE Urine total bilirubin detection by test strip NEGA TIVE NEGATIVE Urine urobilinogen measurement by automated test strip (mass/volume) NORMAL NORMAL Urine leukocyte esterase detection by dipstick 1+ NEGATIVE Automated urine sediment erythrocyte cou nt by microscopy (number/high power field) RARE NRG Automated urine sediment leukocyte count by microscopy (number/high power field) [HPF] NRG Bacteria detection in urine sediment by light microsco py TRACE NRG Squamous epithelial cells detection in u rine sediment by light microscopy 2-5 NRG Crystals detection in urine sediment by light microsco py NONE NRG Casts detection in urine sediment by light microscopy NONE NRG Mucus detection in urine sediment by light microscopy NEGATIVE NRG Complete urinalysis with reflex to culture NO NRG Bacterial urine culture - 12/21/18 09:10 Bacterial urine culture 3 OR MORE NRG COLONY COUNT 60,000 cfu/ml NRG FTX;REPORTABLE SUGGESTING PROBABLE COLLECTION NRG FREE TEXT ENTRY 2 CONTAMINATION WITH SKIN BRITTNI NRG FREE TEXT ENTRY 3 NO SUSCEPTIBILITY PERFORMED NRG Cerebrospinal fluid cell count - 9 11:19 Cerebrospinal fluid appearance description CLEAR NRG Cerebrospinal fluid color identification COLORLESS NRG Cerebrospinal fluid leukocytes count (number/volume) 3 % 0-5 Cerebrospinal fluid erythrocytes count (number/volume) 38 % 0-0 Manual cerebrospinal fluid lymphocytes/100 leukocytes TNP NRG Manual cerebrospinal fluid mononuclear cells/100 leuko cytes TNP NRG Manual cerebrospinal fluid polymorphonuclear cells/100 leukocytes TNP NRG Cerebrospinal fluid cell count on specimen from last t ube collected 4 NRG Cerebrospinal fluid glucose measurement (mass/volume) - 12/21/18 11:19 Cerebrospinal fluid glucose measurement (mass/volume) 67 mg/dL 50-80 Cerebrospinal fluid protein measurement (mass/volume) - 12/21/18 11:19 Cerebrospinal fluid protein measurement (mass/volume) 30 mg/dL 15-40 Gram stain microscopy - 12/21/18 11:19 Gram stain microscopy Rare WBC and no bacteria obs erved. NRG Bacterial cerebrospinal fluid culture - 12/21/18 11:19 Bacterial cerebrospinal fluid culture NG NRG Virus identification by culture - 11:19 Encounters ACCT No. Visit Date/Time Discharge Status Pt. Type Provider Facility Loc./Unit Complaint [id number] 04/22/2016 09:08:00 Document Registration [id number] 12/21/2018 07:17:00 13:57:00 DIS Outpatient KEL CALLEJAS MD Via [facility] ER FEVER,BODY ACHE S, [place] [id number] 12/25/2018 08:00:00 12/25/2018 23:59:5 9 CLS Outpatient JOSE BLAIR APRN [facility] [id number] 09/12/2018 09:35:00 Document Registration [id number] 09/05/2018 08:00:00 Document Registration [id number] 11/30/2016 09:40:00 Document Registration [id number] 12/01/2016 11:08:00 Document Registration [id number] 04/18/2012 16:11:00 04/18/2012 23:59: 59 [facility] Jud RAJPUT MD, NAWAF [id number] 05/18/2012 11:01:31 [facility] [id number] 06/14/2016 08:36:00 Document Registration [id number] 08/25/2016 08:06:00 Document Registration [id number] 10/28/2016 08:07:00 Document Registration
[2019-07-09 19:56] VITALS: BP 133/81
--- NOTE | 2019-07-09 20:07 | ED EENT ---
History of Present Illness General Stated Complaint: FEVER,HEADACHE,NECK ACHES, SORE THROAT Source: patient Exam Limitations: no limitations History of Present Illness Date Seen by Provider: Jul 09, 2019 Time Seen by Provider: 19:53 Initial Comments Patient reports the ER by private conveyance with chief complaint that she developed fever since 10:00 yesterday morning. She's been using ibuprofen but the fever continues to come back. She has a strong sore throat but she is able to swallow fluids. No shortness of breath wheezing coughing nausea vomiting diarrhea dysuria or constipation. She takes control pills but nothing else. She has a history of tympanic myringotomies when she was a child. She's not feeling that her ears or underwater. She has a sore neck and swollen lymph nodes. Allergies and Home Medications Allergies Coded Allergies: No Known Drug Allergies (Unverified , 11/28/09) Patient Home Medication List Home Medication List Reviewed: Yes Review of Systems Review of Systems Constitutional: No chills, No diaphoresis Eyes: Denies Blindness, Denies Blurred Vision Ears: Denies Dizziness, Denies Pain Nose: denies clots, denies epistaxis, denies bloody discharge Mouth: see HPI; denies clots; other (sore throat) Throat: pain; denies swelling; neck stiffness; denies hoarse Respiratory: No cough, No phlegm Cardiovascular: No chest pain, No palpitations Gastrointestinal: No abdominal pain, No nausea : No Musculoskeletal: No back pain, No joint pain Past Pojdjld-Pjcfzy-Gqijgl Hx Patient Social History Alcohol Use: Denies Use Recreational Drug Use: No Smoking Status: Never a Smoker Recent Foreign Travel: No Contact w/Someone Who Travel: No Recent Hopitalizations: No Seasonal Allergies Seasonal Allergies: Yes Past Medical History Surgeries: Yes (TUBES IN EARS) Ear Surgery Respiratory: No Cardiac: No Neurological: Yes Meningitis Reproductive Disorders: No Gastrointestinal: No Musculoskeletal: No Endocrine: No Psychosocial: No Blood Disorders: No Physical Exam Vital Signs Vital Signs - First Documented 07/09/19 19:56 Temp 37.2 Pulse 109 Resp 18 B/P (MAP) 133/81 (98) Pulse Ox 99 O2 Delivery Room Air Height, Weight, BMI Height: '" Weight: lbs. oz. kg; 32.00 BMI Method:Stated General Appearance: WD/WN, no apparent distress Eyes: bilateral eye normal inspection, bilateral eye PERRL, bilateral eye EOMI Ears: bilateral ear auricle normal, bilateral ear canal normal, bilateral ear TM normal (mild otosclerosis bilaterally) Nose: normal inspection; No discharge Mouth/Throat: normal mouth inspection; No foreign body, No tongue swollen; tonsillar exudate, tonsillar swelling Neck: non-tender, full range of motion, supple, normal inspection, lymphadenopathy (R) (few anterior cervical lymphadenopathy bilaterally, shotty), lymphadenopathy (L), other Cardiovascular: normal peripheral pulses, regular rate, rhythm, no murmur Respiratory: lungs clear, normal breath sounds, no respiratory distress, no accessory muscle use Gastrointestinal: normal bowel sounds, non tender Neurologic/Psychiatric: alert, oriented x 3 Skin: normal color, warm/dry Progress/Results/Core Measures Results/Orders Lab Results Laboratory Tests Test 07/09/19 20:00 Range/Units Group A Streptococcus Screen NEGATIVE NEGATIVE My Orders Orders - CÉSAR BAXTER Rapid Strep A Screen (07/09/19 19:53) Vital Signs/I&O 07/09/19 19:56 Temp 37.2 Pulse 109 Resp 18 B/P (MAP) 133/81 (98) Pulse Ox 99 O2 Delivery Room Air Progress Progress Note : Time: 20:05 Progress Note Rapid strep. No acute distress. No respiratory distress. Viral versus bacterial upper respiratory tract pharyngitis. No evidence of meningismus. Departure Impression Primary Impression: Tonsillopharyngitis Disposition: 01 HOME, SELF-CARE Condition: Stable Departure-Patient Inst. Decision time for Depature: 20:06 Referrals: [facility] (PCP/Family) Primary Care Physician Patient Instructions: Viral Pharyngitis (DC) Add. Discharge Instructions: Salt water gargles as often as necessary to reduce the swelling in your tonsils. You may also use [id number] Chloraseptic sprays, throat lozenges etc. I encourage you to drink a lot of fluids. Eating is less important while you're sick. Get plenty of rest. Tylenol/acetaminophen 1000 mg every 8 hours as needed for pain or fever. Ibuprofen/Motrin 800 mg every 8 hours as needed for pain or fever. Expect to be ill for about 5-7 days. This is contagious and you should use hand branch manager's, wash your hands and not allow anyone to eat or drink after you. Work/School Note: Work Release Form Date Seen in the Emergency Department: Jul 09, 2019 Return to Work: Jul 11, 2019 Restrictions: No Restrictions CÉSAR BAXTER Jul 09, 2019 20:07
== END 2019-07-09 20:18 | disposition home or self-care (01) ==
LOC: EDUNIT# 19:42 → ER 19:44
DX: J02.9 Acute pharyngitis, unspecified (principal)
CPT/HCPCS: 87430; 99284

== ENCOUNTER 2022-09-08 21:53 | Emergency (ER) | payer OTHER ==
[~2022-09-08] VITALS: Ht 165.1 cm; Wt 109.4 kg
[2022-09-08 22:10] VITALS: BP 138/93
[2022-09-09] MEDS ORDERED: ACETAMINOPHEN 500 MG TAB (TYLENOL) PO ONE (00:30)
[2022-09-09] MEDS ORDERED: IBUPROFEN 800 MG (MOTRIN) TAB PO SCH (00:30)
[2022-09-09] MEDS ORDERED: IBUP-1780 PO (00:33)
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
[2022-09-09] MEDS ORDERED: LIDOCAINE 4% (SALONPAS) PATCH ONE ×2 (00:39)
[2022-09-09] MEDS ORDERED: LIDOCAINE 4% (SALONPAS) PATCH TOP SCH ×2 (09:00)
== END 2022-09-09 00:50 | disposition home or self-care (01) ==
LOC: EDUNIT# 21:53 → ER 21:55
DX: L55.9 Sunburn, unspecified (principal); Z28.310 Unvaccinated for COVID-19
CPT/HCPCS: 99283

== ENCOUNTER 2023-02-12 21:55 | Emergency (ER) | payer OTHER ==
[~2023-02-12] VITALS: Ht 165.1 cm; Wt 106.6 kg
[~2023-02-12 21:55] MED LIST changes: +IBUP-1780 PO
--- NOTE | 2023-02-12 22:35 | ED GI ---
General Chief Complaint: Abdominal/GI Problems Stated Complaint: VOMITING Nursing Triage Note: PT AMB TO RM 5 W C/O N/V AND EPIGASTRIC PAIN SX 1730 THIS PM. PT A&OX4, VOMITING DURING TRIAGE. History of Present Illness Date Seen by Provider: Feb 12, 2023 Time Seen by Provider: 22:24 Initial Comments Patient is a 27-year-old female who presents to the emergency room with a chief complaint of multiple episodes of vomiting since late afternoon. She has had had epigastric discomfort onset about 530. She states earlier this afternoon she had some leftovers which included hamburger with Posta sauce. She states the leftovers were from Monday last week. They had been refrigerated. She reported that hamburgers were cooked to well-done. She has not had any diarrhea. She has had multiple episodes of vomiting. No reported fevers or chills. Has not been able to take any medication for the vomiting. No prior abdominal surgeries. She is on oral control pill last menstrual cycle was 2 weeks ago. She states she has not missed or skipped any pills. History of pancreatitis due to dehydration when she was 15 years old. Denies alcohol, tobacco, street drugs. No urinary complaints. Timing/Duration: 4-6 Hours Severity/Quality: Severe, Cramping Location: Generalized Abdomen Radiation: Back (upper back) Activities at Onset: None Modifying Factors: Worsens With Movement Associated Symptoms: Nausea/Vomiting Allergies and Home Medications Allergies Coded Allergies: No Known Drug Allergies (Unverified , 11/28/09) Patient Home Medication List Home Medication List Reviewed: Yes Ibuprofen (Ibuprofen) 800 Mg Tablet, 800 MG PO Q6H PRN for PAIN-MILD Prescribed by: ROMEL ADAN on 09/09/22 0033 [ Control] , Unknown Dose, (Reported) Entered as Reported by: ARDEN LAMA on 12/21/18 0743 Review of Systems Review of Systems Constitutional: see HPI EENTM: No Symptoms Reported Respiratory: No Symptoms Reported Cardiovascular: No Symptoms Reported Gastrointestinal: Nausea, Vomiting Genitourinary: No Symptoms Reported Musculoskeletal: back pain (upper back and neck) Skin: no symptoms reported Psychiatric/Neurological: No Symptoms Reported Past Ktsejsu-Zovvie-Hwrtyc Hx Patient Social History Tobacco Use?: No Use of E-Cig and/or Vaping dev: No Substance use?: No Alcohol Use?: No Immunizations Up To Date Tetanus Booster (TDap): Unknown Seasonal Allergies Seasonal Allergies: Yes Past Medical History Surgeries: Yes (TUBES IN EARS) Ear Surgery Respiratory: No Cardiac: No Neurological: Yes Meningitis Reproductive Disorders: No Genitourinary: No Gastrointestinal: No Musculoskeletal: No Endocrine: No HEENT: No Cancer: No Psychosocial: No Integumentary: No Blood Disorders: No Physical Exam Vital Signs Vital Signs - First Documented 02/12/23 22:08 Temp 36.8 Pulse 108 Resp 20 B/P (MAP) 133/80 (97) Pulse Ox 98 O2 Delivery Room Air Capillary Refill : Less Than 3 Seconds Height/Weight/BMI Height: '" Weight: lbs. oz. kg; 39.00 BMI Method:Stated General Appearance: WD/WN, no apparent distress HEENT: PERRL/EOMI, normal ENT inspection Neck: normal inspection Respiratory: lungs clear, normal breath sounds, no respiratory distress, no accessory muscle use Cardiovascular: regular rate, rhythm Gastrointestinal: non tender, soft, abnormal bowel sounds (Hypoactive) Extremities: normal range of motion, non-tender, normal inspection, no pedal edema, no calf tenderness Neurologic/Psychiatric: alert, normal mood/affect, oriented x 3 Skin: warm/dry, pallor Progress/Results/Core Measures Results/Orders Lab Results Laboratory Tests Test 02/12/23 22:22 Range/Units White Blood Count 16.5 H 4.3-11.0 10^3/uL Red Blood Count 5.34 H 3.80-5.11 10^6/uL Hemoglobin 13.9 11.5-16.0 g/dL Hematocrit 43 35-52 % Mean Corpuscular Volume 81 80-99 fL Mean Corpuscular Hemoglobin 26 25-34 pg Mean Corpuscular Hemoglobin Concent 32 32-36 g/dL Red Cell Distribution Width 13.5 10.0-14.5 % Platelet Count 351 130-400 10^3/uL Mean Platelet Volume 9.3 9.0-12.2 fL Immature Granulocyte % (Auto) 0 % Neutrophils (%) (Auto) 87 H 42-75 % Lymphocytes (%) (Auto) 9 L 12-44 % Monocytes (%) (Auto) 4 0-12 % Eosinophils (%) (Auto) 0 0-10 % Basophils (%) (Auto) 0 0-10 % Neutrophils # (Auto) 14.3 H 1.8-7.8 10^3/uL Lymphocytes # (Auto) 1.4 1.0-4.0 10^3/uL Monocytes # (Auto) 0.6 0.0-1.0 10^3/uL Eosinophils # (Auto) 0.0 0.0-0.3 10^3/uL Basophils # (Auto) 0.0 0.0-0.1 10^3/uL Immature Granulocyte # (Auto) 0.1 0.0-0.1 10^3/uL Neutrophils % (Manual) 63 % Lymphocytes % (Manual) 5 % Monocytes % (Manual) 5 % Band Neutrophils 27 % Sodium Level 139 135-145 MMOL/L Potassium Level 4.3 3.6-5.0 MMOL/L Chloride Level 106 98-107 MMOL/L Carbon Dioxide Level 23 21-32 MMOL/L Anion Gap 10 5-14 MMOL/L Blood Urea Nitrogen 17 7-18 MG/DL Creatinine 0.72 0.60-1.30 MG/DL Estimat Glomerular Filtration Rate 117 BUN/Creatinine Ratio 24 Glucose Level 140 H 70-105 MG/DL Calcium Level 9.1 8.5-10.1 MG/DL Corrected Calcium 8.9 8.5-10.1 MG/DL Total Bilirubin 0.4 0.1-1.0 MG/DL Aspartate Amino Transf (AST/SGOT) 17 5-34 U/L Alanine Aminotransferase (ALT/SGPT) 19 0-55 U/L Alkaline Phosphatase 79 40-136 U/L Total Protein 7.5 6.4-8.2 GM/DL Albumin 4.2 3.2-4.5 GM/DL Lipase 14 8-78 U/L Serum Test, Qualitative NEGATIVE NEGATIVE My Orders Orders - ARACELI KRAFT MD Ed Iv/Invasive Line Start (02/12/23 22:33) Cbc And Automated Diff (02/12/23 22:33) Comprehensive Metabolic Panel (02/12/23 22:33) Lipase (02/12/23 22:33) Hcg,Qualitative Serum (02/12/23 22:33) Lactated Ringers 1,000 Ml (Lactated Ring (02/12/23 22:45) Ondansetron Injection (Ondansetron Inj (02/12/23 22:45) Manual Differential (02/12/23 22:22) Rx-Ondansetron Po (Rx-Zofran Po) (02/12/23 23:35) Medications Given in ED Current Medications Medications Dose Ordered Sig/Patric Route Start Time Stop Time Status Last Admin Dose Admin Ondansetron HCl 8 mg ONCE ONCE IVP 02/12/23 22:45 02/12/23 22:46 DC 02/12/23 22:50 8 MG Vital Signs/I&O 02/12/23 22:08 Temp 36.8 Pulse 108 Resp 20 B/P (MAP) 133/80 (97) Pulse Ox 98 O2 Delivery Room Air Blood Pressure Mean: 97 Progress Progress Note : Time: 00:01 Progress Note Patient seen and evaluated by me. Evaluation today includes history and physical exam with CBC, comprehensive metabolic panel and lipase as well as serum test. Pertinent physical exam findings well-developed well- nourished obese female no acute distress. She has normal vital signs, heart rate is a little bit tachycardic at 110. She is afebrile. Normal oxygen saturations. HEENT exam shows somewhat dry oral mucosa. Heart is regular, tacky, lungs are clear. She has very hypoactive bowel sounds. No rebound, involuntary guarding. Negative Pereira's, no tenderness at McBurney's point. Lower extremities are without edema or calf tenderness. Normal mentation. Differential diagnosis acute gastroenteritis, food poisoning, hypokalemia, acute kidney injury, acute pancreatitis, biliary colic, SBO patient labs independently reviewed and interpreted by me. Her CBC shows a total white blood cell count of 16.5 with 87% segmented neutrophils, normal H&H and platelets. Her comprehensive metabolic panel is normal except for mildly elevated glucose at 140. Her lipase is normal at 14. Her serum test is negative. Patient is treated in the emergency department with a liter of lactated Ringer's as well as 8 mg of Zofran IV. Physical exam is not concerning for small bowel obstruction. She is not tender whatsoever, no distention and hypoactive bowel sounds. She does not have acute pancreatitis, her renal func tion is normal ruling out acute kidney injury. She is not hypokalemic from the vomiting. Suspect that this is a gastritis due to some type of food poisoning. We will send the patient home with some ODT Zofran this evening, recommendations for clear liquid diet and advancing as tolerated throughout the day tomorrow. Return precautions provided in both verbal and written format. All questions are sought and answered. Work note for tomorrow will be provided. Departure Impression Primary Impression: Gastritis, acute Qualified Codes: K29.00 - Acute gastritis without bleeding Disposition: HOME, SELF-CARE Condition: Improved Departure-Patient Inst. Decision time for Depature: 00:05 Referrals: [facility] (PCP/Family) Primary Care Physician Patient Instructions: Gastritis ED Add. Discharge Instructions: I have given you some ondansetron (Zofran). Take 1 tablet every 6-8 hours as needed for nausea. These are orally disintegrating tablets. Push clear liquids at home such as dilute Apple juice, Gatorade, Pedialyte; slowly advance her diet as tolerated tomorrow afternoon. You might consider an fkae-tux-bwyaemi acid level vial setter such as Pepcid or Prilosec daily, this will help decrease acid production in the stomach and may also help with your nausea. If you develop a fever over 101, abdominal pain with persistent vomiting please return to the emergency department for reevaluation. Please follow-up with your primary care provider. Work/School Note: Work Release Form Date Seen in the Emergency Department: Feb 12, 2023 Return to Work: Feb 14, 2023 Copy Copies To 1: SIMON MIXON KATHRYN M MD Feb 12, 2023 22:35
[2023-02-12] MEDS ORDERED: ONDANSETRON INJECTION 4 MG/2 ML (SDV) IVP ONE (22:45)
[2023-02-12] MEDS ORDERED: LACTATED RINGERS 1,000 ML 1,000 ML IV SCH (22:45)
[2023-02-12 22:56] LABS: BASOPHILS % (AUTO) 0 % (0-10); EOSINOPHILS % (AUTO) 0 % (0-10); HEMATOCRIT 43 % (35-52); HEMOGLOBIN 13.9 g/dL (11.5-16.0); LYMPHOCYTES # (AUTO) 1.4 10^3/uL (1.0-4.0); LYMPHOCYTES % (AUTO) 9 % (12-44); MEAN CORPUSCULAR HEMOGLOBIN 26 pg (25-34); MEAN CORPUSCULAR HGB CONC 32 g/dL (32-36); MEAN CORPUSCULAR VOLUME 81 fL (80-99); MEAN PLATELET VOLUME 9.3 fL (9.0-12.2); MONOCYTES # (AUTO) 0.6 10^3/uL (0.0-1.0); MONOCYTES % (AUTO) 4 % (0-12); NEUTROPHILS # (AUTO) 14.3 10^3/uL (1.8-7.8); NEUTROPHILS % (AUTO) 87 % (42-75); PLATELET COUNT 351 10^3/uL (130-400); WHITE BLOOD COUNT 16.5 10^3/uL (4.3-11.0)
[2023-02-12 23:02] LABS: ALBUMIN 4.2 GM/DL (3.2-4.5)
[2023-02-12 23:03] LABS: POTASSIUM 4.3 MMOL/L (3.6-5.0)
[2023-02-12 23:04] LABS: CALCIUM 9.1 MG/DL (8.5-10.1)
[2023-02-12 23:05] LABS: TOTAL PROTEIN 7.5 GM/DL (6.4-8.2)
[2023-02-12 23:07] LABS: BILIRUBIN,TOTAL 0.4 MG/DL (0.1-1.0)
[2023-02-12 23:09] LABS: CREATININE SERUM 0.72 MG/DL (0.60-1.30)
[2023-02-12 23:20] LABS: BAND NEUTROPHILS 27 %; LYMPHOCYTES % (MANUAL) 5 %; MONOCYTES % (MANUAL) 5 %; NEUTROPHILS % (MANUAL) 63 %
[2023-02-12] MEDS ORDERED: RX-ONDANSETRON 4 MG ODT (ZOFRAN) PPK #4 PO STA (23:35)
[2023-02-13 00:18] VITALS: BP 121/79
== END 2023-02-13 00:18 | disposition home or self-care (01) ==
LOC: EDUNIT# 21:55 → ER 21:57
DX: K29.70 Gastritis, unspecified, without bleeding (principal)
CPT/HCPCS: 36415; 80053; 83690; 84703; 85007; 85027